=== PATIENT | male | born 1980 | race Caucasian/White ===

== ENCOUNTER 2020-08-22 13:19 | Emergency (ER) | payer SELFPAY ==
[~2020-08-22] VITALS: Ht 160 cm; Wt 69.4 kg
[2020-08-22 13:30] VITALS: BP 114/75
[2020-08-22] MEDS ORDERED: KETOROLAC TROMETHAMINE INJ 60 MG/2 ML VIAL IM ONE ×2 (13:45→14:00)
[2020-08-22] MEDS ORDERED: TRAM50TA2 PO (13:56)
== END 2020-08-22 14:13 | disposition home or self-care (01) ==
LOC: ER 13:19
DX: M54.5 Low back pain (principal)
CPT/HCPCS: 72110; 96372; 99283; J1885

== ENCOUNTER 2020-08-27 12:45 | Emergency (ER) | payer SELFPAY ==
[~2020-08-27] VITALS: Ht 167.6 cm; Wt 68.0 kg
[~2020-08-27 12:45] MED LIST: TRAM50TA2 PO
[2020-08-27 13:13] VITALS: BP 109/75
--- NOTE | 2020-08-27 13:41 | NUR ---
Per patient's request, this SW attempted to meet with SW. However, pt. has departed.
[2020-08-27] MEDS ORDERED: CYCL5TAB PO (14:13)
[2020-08-27] MEDS ORDERED: NAPR-1164 PO (14:13)
[2020-08-27] MEDS ORDERED: KETOROLAC TROMETHAMINE INJ 30 MG/ML VIAL ONE (14:29)
[2020-08-27] MEDS ORDERED: KETOROLAC TROMETHAMINE INJ 60 MG/2 ML VIAL IM ONE (14:30)
== END 2020-08-27 14:35 | disposition home or self-care (01) ==
LOC: ER 13:18
DX: M54.5 Low back pain (principal); Z79.899 Other long term (current) drug therapy
CPT/HCPCS: 96372; 99283; J1885